=== PATIENT | male | born 1980 | race Caucasian/White ===

== ENCOUNTER 2022-10-26 15:54 | Emergency (ER) | payer OTHER | END 2022-10-26 17:02 | disposition home or self-care (01) | LOC: DL.ED 15:54 | DX: S86.112A Strain of other muscle(s) and tendon(s) of posterior muscle group at lower leg level, left leg, initial encounter (principal); Z86.16 Personal history of COVID-19; W50.1XXA Accidental kick by another person, initial encounter; Y93.67 Activity, basketball | CPT/HCPCS: 73610-LT; 99282; 99283 ==